=== PATIENT | male | born 1940 | race Caucasian/White ===

== ENCOUNTER 2017-12-12 12:44 | Day surgery (SDC) | payer MEDICARE ==
[~2017-12-12 12:44] MED LIST: Buffered Lidocaine 0.9% SYRIN* 5 ML/SYR SYRINGE INTRADERM ONE; Famotidine IV* 10 MG/ML 2 ML (20 mg) IV ONE; Metoclopramide TAB* 10 MG PO ONE
[2017-12-12] MEDS ORDERED: Famotidine IV* 10 MG/ML 2 ML (20 mg) ONE (12:49)
[2017-12-12] MEDS ORDERED: Metoclopramide TAB* 10 MG ONE (12:50)
[2017-12-12] MEDS ORDERED: ceFAZolin 1 GM in Dextrose (*) 2 GM/100 ML BAG IVPB ONE (12:50)
[2017-12-12] MEDS ORDERED: Dexamethasone IV* 4 MG/ML 1 ML (4 MG) ONE (13:50)
[2017-12-12] MEDS ORDERED: Lidocaine 2% PF * 5 ML VIAL ONE (13:50)
[2017-12-12] MEDS ORDERED: Ondansetron INJ* 2 MG/ML VIAL ONE (13:50)
[2017-12-12] MEDS ORDERED: fentaNYL* 50 MCG/ML 2 ML VIAL (100 MCG VIAL) ONE (13:50)
[2017-12-12] MEDS ORDERED: Propofol* 10 MG/ML 20 ML BTL IV PUSH ONE (13:50)
[2017-12-12] MEDS ORDERED: KETAMINE HCL* 50 MG/ML 10 ML VIAL ONE (13:51)
[2017-12-12] MEDS ORDERED: Midazolam* 1 MG/ML 10 ML VIAL (10 MG) ONE (13:51)
[2017-12-12] MEDS ORDERED: Lidocaine 1% MPF wEPI 200,000* 30 ML SDV ONE (14:09)
[2017-12-12] MEDS ORDERED: Mineral Oil Sterile, TOPICAL* 25 ML BTL ONE (14:09)
[2017-12-12] MEDS ORDERED: Labetalol IV* 5 MG/ML 20 ML VIAL ONE (14:36)
[2017-12-12] MEDS ORDERED: Naloxone* 0.4 MG/ML 1 ML VIAL IV PRN (15:45)
[2017-12-12] MEDS ORDERED: Ondansetron INJ* 2 MG/ML VIAL IV PRN (15:45)
[2017-12-12] MEDS ORDERED: fentaNYL* 50 MCG/ML 2 ML VIAL (100 MCG VIAL) IV PRN (15:45)
[2017-12-12 16:35] VITALS: BP 119/64
== END 2017-12-12 16:42 | disposition home or self-care (01) ==
LOC: OR 12:44
PROVIDERS: ATTEND Plastic Surgery
DX: D04.22 Carcinoma in situ of skin of left ear and external auricular canal (principal); I48.91 Unspecified atrial fibrillation; Z79.01 Long term (current) use of anticoagulants; I10 Essential (primary) hypertension; E03.9 Hypothyroidism, unspecified; Z95.2 Presence of prosthetic heart valve; Z95.1 Presence of aortocoronary bypass graft; I65.29 Occlusion and stenosis of unspecified carotid artery; I25.10 Atherosclerotic heart disease of native coronary artery without angina pectoris
CPT/HCPCS: 88305; 88331; 88332; A9270-GY; J0690; J1100; J2001; J2250; J2405; J2704; J3010

== ENCOUNTER 2024-06-08 16:25 | Inpatient (IN) ==
[2024-06-08] MEDS: NS 0.9% 500 ml BAG 500 ML IV ONE (16:45)
[2024-06-08 16:58] LABS: Hematocrit 31.6 % (38-53); Hemoglobin 10.8 g/dL (13.2-16.3); Mean Corpuscular Hemoglobin 36.2 pg (27-33); Mean Corpuscular Hgb Conc 34.2 g/dL (31-36); Mean Corpuscular Volume 105.7 fL (80-97); Red Blood Count 2.99 10^6/uL (4.06-5.63); Red Cell Distribution Width 18.5 % (12-17); White Blood Count 5.3 10^3/uL (3.6-10.2)
[2024-06-08 17:03] LABS: INR 3.8 (0.83-1.13)
[2024-06-08 17:23] LABS: ABS Lymphocytes 0.2 10^3/uL (1.0-4.8); ABS Monocytes 0.7 10^3/uL (0.0-1.1); ABS Neutrophils 4.2 10^3/uL (1.5-7.6); Eosinophil % 0.9 %; Lymphocyte % 4.2 %; Mean Platelet Volume 8.1 fL (7.5-11.2); Nucleated Red Blood Cells % 0.1 %/100WBC (0.0-0.8); Platelet Count 95 10^3/uL (150-450)
[2024-06-08 17:36] LABS: Albumin 3.6 g/dL (3.2-5.2); Calcium 9.2 mg/dL (8.6-10.3); Creatinine, Serum 1.71 mg/dL (0.67-1.17); Globulin 3.6 g/dL (2-4); Potassium 3.6 mmol/L (3.5-5.0); Total Bilirubin 3.3 mg/dL (0.2-1.0); Total Protein 7.2 g/dL (6.4-8.9); eGFR CKD-EPI 38.7 (>60)
[2024-06-08 18:09] LABS: Urine Appearance Clear; Urine Bilirubin Negative (Negative); Urine Blood Negative (Negative); Urine Color Light-Yellow; Urine Glucose Trace (Negative); Urine Ketones Negative (Negative); Urine Nitrite Negative (Negative); Urine Protein Negative (Negative); Urine Specific Gravity 1.009 (1.002-1.030); Urine Urobilinogen Negative (Negative); Urine pH 6.5 (5.0-8.0)
[2024-06-08 18:17] LABS: High Sensitivity Troponin 1 Hr 164 pg/mL (<20)
[2024-06-08] MEDS: Iodixanol (CONTRAST) 320 MG/ML 100 ML SDV IV ONE (18:34)
[2024-06-08 20:24] LABS: High Sensitivity Troponin 3 Hr 160 pg/mL (<20)
[2024-06-09 00:57] LABS: TSH Ultra Thyroid Stim Horm 4.5 mcIU/mL (0.34-5.60)
[2024-06-09 01:04] LABS: Ferritin 57.3 ng/mL (24-336)
[2024-06-09 01:08] LABS: Folate 9.1 ng/mL (5.90-24.80)
[2024-06-09] MEDS: NS 0.9% 1000 ml BAG 500 ML IV SCH ×2 (01:33→01:51)
[2024-06-09 02:33] LABS: Immature Retic Fraction 0.26
[2024-06-09 02:49] LABS: Hematocrit for Retic CNT 31.6 % (38-53); RBC Retic Count 2.99 10^6/ul (4.06-5.63)
[2024-06-09 05:27] LABS: C Reactive Protein 3.01 mg/L (<8.01); Magnesium 2.5 mg/dL (1.9-2.7)
[2024-06-09 05:33] LABS: ABS Basophils 0.1 10^3/uL (0.0-0.1); ABS Lymphocytes 0.2 10^3/uL (1.0-4.8); ABS Monocytes 0.7 10^3/uL (0.0-1.1); ABS Neutrophils 4.9 10^3/uL (1.5-7.6); ABS Nucleated RBC 0.01 10^3/ul; Eosinophil % 0.4 %; Hemoglobin 10.8 g/dL (13.2-16.3); INR 3.61 (0.83-1.13); Lymphocyte % 3.8 %; Mean Corpuscular Hemoglobin 36.8 pg (27-33); Mean Corpuscular Volume 105.2 fL (80-97); Mean Platelet Volume 8.4 fL (7.5-11.2); Nucleated Red Blood Cells % 0.1 %/100WBC (0.0-0.8); Platelet Count 83 10^3/uL (150-450); Red Blood Count 2.95 10^6/uL (4.06-5.63); Red Cell Distribution Width 18.3 % (12-17); White Blood Count 5.9 10^3/uL (3.6-10.2)
[2024-06-09 06:05] LABS: Albumin 3.3 g/dL (3.2-5.2); Calcium 9.1 mg/dL (8.6-10.3); Creatinine, Serum 1.54 mg/dL (0.67-1.17); Globulin 3.4 g/dL (2-4); Magnesium 2.3 mg/dL (1.9-2.7); Potassium 3.4 mmol/L (3.5-5.0); Total Bilirubin 3.5 mg/dL (0.2-1.0); Total Protein 6.7 g/dL (6.4-8.9); eGFR CKD-EPI 43.9 (>60)
[2024-06-09] MEDS ORDERED: Sulfur Hexaflouride MICROSPHR 25 MG VIAL ONE (08:34)
[2024-06-09] MEDS: Sulfur Hexaflouride MICROSPHR 25 MG VIAL IV ONE (08:38)
[2024-06-09] MEDS: KCL 20 MEQ/100 ML IVPREMIX 20 MEQ/100 ML BAG IV SCH (09:42)
[2024-06-09] MEDS: Warfarin - No Order Today **NOTE FOLLOW UP ONE (18:05)
[2024-06-09] MEDS: Warfarin per PHARMACY **NOTE FOLLOW UP SCH (18:05)
[2024-06-10 06:42] LABS: INR 3.14 (0.83-1.13)
[2024-06-10 06:47] LABS: ABS Lymphocytes 0.3 10^3/uL (1.0-4.8); ABS Monocytes 0.8 10^3/uL (0.0-1.1); ABS Neutrophils 5.8 10^3/uL (1.5-7.6); ABS Nucleated RBC 0.01 10^3/ul; Eosinophil % 0.3 %; Hematocrit 33.1 % (38-53); Hemoglobin 11.3 g/dL (13.2-16.3); Lymphocyte % 4.3 %; Mean Corpuscular Hemoglobin 36.3 pg (27-33); Mean Corpuscular Hgb Conc 34.1 g/dL (31-36); Mean Corpuscular Volume 106.5 fL (80-97); Mean Platelet Volume 8.7 fL (7.5-11.2); Nucleated Red Blood Cells % 0.1 %/100WBC (0.0-0.8); Platelet Count 90 10^3/uL (150-450); Red Blood Count 3.11 10^6/uL (4.06-5.63); Red Cell Distribution Width 18.7 % (12-17); White Blood Count 6.9 10^3/uL (3.6-10.2)
[2024-06-10 06:55] LABS: Albumin 3.4 g/dL (3.2-5.2); Calcium 9.5 mg/dL (8.6-10.3); Creatinine, Serum 1.77 mg/dL (0.67-1.17); Globulin 3.4 g/dL (2-4); Magnesium 2.6 mg/dL (1.9-2.7); Total Bilirubin 3.4 mg/dL (0.2-1.0); Total Protein 6.8 g/dL (6.4-8.9); eGFR CKD-EPI 37.2 (>60)
[2024-06-10 08:43] LABS: HDL Cholesterol 26.4 mg/dL
[2024-06-10] MEDS ORDERED: fentaNYL 100 mcg/2 ml 50 MCG/ML VIAL ONE (14:17)
[2024-06-10] MEDS ORDERED: Flumazenil 0.5 mg/5 ml 0.1 MG/ML 5 ml VIAL ONE (14:17)
[2024-06-10] MEDS ORDERED: Naloxone 0.4 mg VIAL 0.4 mg/ml 1 ml VIAL ONE (14:17)
[2024-06-10] MEDS ORDERED: Midazolam 5 mg/5 ml VIAL 1 mg/ml 5 ml VIAL (5 mg) ONE (14:18)
[2024-06-10] MEDS: fentaNYL 100 mcg/2 ml 50 MCG/ML VIAL IV SLOW PU ONE (14:39)
[2024-06-10] MEDS: Midazolam 10 mg/10 ml VIAL 1 mg/ml 10 ml VIAL (10 mg) IV SLOW PU ONE (14:39)
[2024-06-10] MEDS: Warfarin DAILY REMINDER **NOTE FOLLOW UP SCH (17:41)
[2024-06-11 06:49] LABS: INR 3.02 (0.83-1.13)
[2024-06-11 07:07] LABS: Calcium 9.5 mg/dL (8.6-10.3); Creatinine, Serum 1.56 mg/dL (0.67-1.17); Magnesium 2.6 mg/dL (1.9-2.7); eGFR CKD-EPI 43.3 (>60)
[2024-06-11 08:20] LABS: ABS Lymphocytes 0.2 10^3/uL (1.0-4.8); ABS Monocytes 0.6 10^3/uL (0.0-1.1); ABS Neutrophils 4.8 10^3/uL (1.5-7.6); ABS Nucleated RBC 0.01 10^3/ul; Eosinophil % 0.8 %; Hematocrit 32.5 % (38-53); Hemoglobin 11.1 g/dL (13.2-16.3); Lymphocyte % 4.2 %; Mean Corpuscular Hemoglobin 36.2 pg (27-33); Mean Corpuscular Hgb Conc 34.2 g/dL (31-36); Mean Corpuscular Volume 105.9 fL (80-97); Mean Platelet Volume 8.1 fL (7.5-11.2); Nucleated Red Blood Cells % 0.2 %/100WBC (0.0-0.8); Platelet Count 89 10^3/uL (150-450); Red Blood Count 3.07 10^6/uL (4.06-5.63); Red Cell Distribution Width 18.4 % (12-17); White Blood Count 5.7 10^3/uL (3.6-10.2)
[2024-06-11 14:13] LABS: Haptoglobin 27 mg/dL (30 - 200)
[2024-06-11] MEDS ORDERED: Senna TAB 8.6 mg TAB PO PRN (20:51)
[2024-06-12 06:25] LABS: INR 3.48 (0.83-1.13)
[2024-06-12] MEDS ORDERED: Senna TAB 8.6 mg TAB PO PRN (09:01)
[2024-06-12] MEDS ORDERED: Polyethylene Glycol 3350 17 GM PACKET PO PRN (09:02)
[2024-06-12] MEDS: Polyethylene Glycol 3350 17 GM PACKET PO SCH (11:05)
[2024-06-12] MEDS: Senna TAB 8.6 mg TAB PO ONE (11:05)
[2024-06-12 13:50] VITALS: BP 147/81
[2024-06-12 14:57] LABS: Anaplasma phagocytophilum Negative (Negative); B. miyamotoi PCR, B Negative (Negative); Babesia divergens/MO-1 Negative (Negative); Babesia ducani Negative (Negative); Ehrlichia chaffeensis Negative (Negative); Ehrlichia ewingii/canis Negative (Negative); Ehrlichia muris eauclairensis Negative (Negative)
[2024-06-12] MEDS ORDERED: Warfarin - No Order Today **NOTE FOLLOW UP ONE (17:00)
== END 2024-06-12 14:30 | disposition home health service (06) | DRG 948 ==
LOC: ED 16:25 → EDHOLD 16:25 → SUATTDRO 21:47 → MEDTELE 06-09 00:08
PROVIDERS: ADMIT Internal Medicine; ATTEND Student in an Organized Health Care Education/Training Program

== ENCOUNTER 2024-06-22 14:27 | Inpatient (IN) ==
[2024-06-22] MEDS: LACTATED RINGERS IV ONE (15:02)
[2024-06-22 15:20] LABS: Hematocrit 19.2 % (38-53); Hemoglobin 6.5 g/dL (13.2-16.3); Mean Corpuscular Hemoglobin 36.5 pg (27-33); Mean Corpuscular Hgb Conc 33.9 g/dL (31-36); Mean Corpuscular Volume 107.7 fL (80-97); Red Blood Count 1.79 10^6/uL (4.06-5.63); Red Cell Distribution Width 18.9 % (12-17); White Blood Count 7.2 10^3/uL (3.6-10.2)
[2024-06-22 15:32] LABS: Activated Partial Thrombo Time 45.2 seconds (26.0-38.0)
[2024-06-22 15:32] LABS: Urine Appearance Clear; Urine Bilirubin Negative (Negative); Urine Blood Negative (Negative); Urine Color Light-Yellow; Urine Glucose 1+ (>=70 mg/dL) (Negative); Urine Ketones Negative (Negative); Urine Nitrite Negative (Negative); Urine Protein Negative (Negative); Urine Specific Gravity 1.015 (1.002-1.030); Urine Urobilinogen Negative (Negative)
[2024-06-22 15:37] LABS: INR 9.55 (0.85-1.14)
[2024-06-22 15:39] LABS: Urine Bacteria 1+ /HPF (Absent); Urine Red Blood Cell Trace(0-2/hpf) /HPF (0-Trace); Urine Squamous Epithelial Cell Present /HPF (Absent); Urine White Blood Cell Trace(0-5/hpf) /HPF (0-Trace)
[2024-06-22 15:49] LABS: ABS Lymphocytes 0.3 10^3/uL (1.0-4.8); ABS Monocytes 0.5 10^3/uL (0.0-1.1); ABS Neutrophils 6.4 10^3/uL (1.5-7.6); ABS Nucleated RBC 0.04 10^3/ul; Anisocytosis 2+; Eosinophil % 0.2 %; Lymphocyte % 3.9 %; Macrocytosis 1+; Mean Platelet Volume 8.4 fL (7.5-11.2); Nucleated Red Blood Cells % 0.6 %/100WBC (0.0-0.8); Platelet Count 92 10^3/uL (150-450); Polychromasia 1+
[2024-06-22] MEDS: Phytonadione IV (Adult) 10 MG in NS 0.9% 50 ML 50 ML IV ONE (16:16)
[2024-06-22] MEDS: Prothrombin Complex Conc. DOSE = Units Factor IX (nine) IV SLOW PU ONE (16:27)
[2024-06-22 16:33] LABS: Albumin 3.1 g/dL (3.2-5.2); Albumin/Globulin Ratio 1.1 (1-3); C Reactive Protein 2.66 mg/L (<8.01); Calcium 9.1 mg/dL (8.6-10.3); Creatinine, Serum 1.44 mg/dL (0.67-1.17); Globulin 2.8 g/dL (2-4); Potassium 4.1 mmol/L (3.5-5.0); Total Bilirubin 2.5 mg/dL (0.2-1.0); Total Protein 5.9 g/dL (6.4-8.9); eGFR CKD-EPI 47.6 (>60)
[2024-06-22 16:42] LABS: High Sensitivity Troponin 1 Hr 113 pg/mL (<20)
[2024-06-22] MEDS: Pantoprazole VIAL 40 MG VIAL IV ONE (17:36)
[2024-06-22] MEDS: Pantoprazole 80 mg in NS BAG 80 MG/250 ML BAG IV SCH (18:14)
[2024-06-23 00:30] LABS: Hematocrit 21.4 % (38-53); Hemoglobin 7.1 g/dL (13.2-16.3)
[2024-06-23] MEDS: Levothyroxine 100 MCG/5 ML VIAL IV SCH (06:35)
[2024-06-23] MEDS: Lactated Ringers 1000 ml BAG 1,000 ML IV ONE ×2 (08:00→13:37)
[2024-06-23 08:17] LABS: INR 2.16 (0.85-1.14)
[2024-06-23 08:25] LABS: Hematocrit 22.7 % (38-53); Hemoglobin 7.6 g/dL (13.2-16.3); Mean Corpuscular Hemoglobin 33.8 pg (27-33); Mean Corpuscular Hgb Conc 33.4 g/dL (31-36); Mean Corpuscular Volume 101.4 fL (80-97); Red Blood Count 2.24 10^6/uL (4.06-5.63); Red Cell Distribution Width 23.5 % (12-17); White Blood Count 7.4 10^3/uL (3.6-10.2)
[2024-06-23 08:34] LABS: Anion Gap 11 mmol/L (2-16); Blood Urea Nitrogen 104 mg/dL (6-24); CO2 Carbon Dioxide 17 mmol/L (22-32); Calcium 8.6 mg/dL (8.6-10.3); Chloride 109 mmol/L (101-111); Creatinine, Serum 1.45 mg/dL (0.67-1.17); Glucose 100 mg/dL (70-100); Sodium 137 mmol/L (135-145); eGFR CKD-EPI 47.2 (>60)
[2024-06-23 09:35] LABS: ABS Eosinophils 0.1 10^3/uL (0.0-0.5); ABS Lymphocytes 0.3 10^3/uL (1.0-4.8); ABS Monocytes 0.6 10^3/uL (0.0-1.1); ABS Neutrophils 6.3 10^3/uL (1.5-7.6); ABS Nucleated RBC 0.07 10^3/ul; Eosinophil % 0.8 %; Lymphocyte % 4.7 %; Mean Platelet Volume 8.8 fL (7.5-11.2); Nucleated Red Blood Cells % 0.9 %/100WBC (0.0-0.8); Platelet Count 86 10^3/uL (150-450)
[2024-06-23 11:22] LABS: Folate 7.23 ng/mL (5.90-24.80)
[2024-06-23 13:51] LABS: Ferritin 42.5 ng/mL (24-336)
[2024-06-23 13:54] LABS: Hepatitis B Surface Antigen Nonreactive (Nonreactive)
[2024-06-23 14:11] LABS: Hepatitis B Surface Ab Not Immune (Immune)
[2024-06-23 14:18] LABS: Hepatitis C Antibody Negative (Negative)
[2024-06-23 15:17] LABS: Hematocrit 22.2 % (38-53); Hemoglobin 7.4 g/dL (13.2-16.3); Mean Corpuscular Hemoglobin 33.9 pg (27-33); Mean Corpuscular Hgb Conc 33.5 g/dL (31-36); Mean Platelet Volume 8.6 fL (7.5-11.2); Platelet Count 85 10^3/uL (150-450); Red Cell Distribution Width 23.1 % (12-17); White Blood Count 7.1 10^3/uL (3.6-10.2)
[2024-06-23 15:55] LABS: ABS Basophils 0.1 10^3/uL (0.0-0.1); ABS Lymphocytes 0.3 10^3/uL (1.0-4.8); ABS Monocytes 0.5 10^3/uL (0.0-1.1); ABS Neutrophils 6.2 10^3/uL (1.5-7.6); ABS Nucleated RBC 0.09 10^3/ul; Anisocytosis 2+; Eosinophil % 0.5 %; Lymphocyte % 4.1 %; Nucleated Red Blood Cells % 1.3 %/100WBC (0.0-0.8); Polychromasia 2+
[2024-06-24 05:02] LABS: ABS Basophils 0.1 10^3/uL (0.0-0.1); ABS Eosinophils 0.1 10^3/uL (0.0-0.5); ABS Lymphocytes 0.2 10^3/uL (1.0-4.8); ABS Monocytes 0.6 10^3/uL (0.0-1.1); ABS Neutrophils 6.3 10^3/uL (1.5-7.6); ABS Nucleated RBC 0.07 10^3/ul; Eosinophil % 1.1 %; Hematocrit 22.6 % (38-53); Hemoglobin 7.9 g/dL (13.2-16.3); Lymphocyte % 3.3 %; Mean Corpuscular Hemoglobin 35.3 pg (27-33); Mean Corpuscular Hgb Conc 34.9 g/dL (31-36); Mean Corpuscular Volume 101.1 fL (80-97); Mean Platelet Volume 8.8 fL (7.5-11.2); Platelet Count 87 10^3/uL (150-450); Red Blood Count 2.24 10^6/uL (4.06-5.63); Red Cell Distribution Width 23.5 % (12-17); White Blood Count 7.4 10^3/uL (3.6-10.2)
[2024-06-24 06:55] LABS: Anion Gap 11 mmol/L (2-16); Blood Urea Nitrogen 79 mg/dL (6-24); CO2 Carbon Dioxide 18 mmol/L (22-32); Calcium 8.4 mg/dL (8.6-10.3); Chloride 109 mmol/L (101-111); Creatinine, Serum 1.36 mg/dL (0.67-1.17); Glucose 90 mg/dL (70-100); Sodium 138 mmol/L (135-145)
[2024-06-24 10:15] LABS: INR 1.66 (0.85-1.14)
[2024-06-24 11:49] LABS: Magnesium 2.1 mg/dL (1.9-2.7)
[2024-06-24] MEDS ORDERED: Midazolam 10 mg/10 ml VIAL 1 mg/ml 10 ml VIAL (10 mg) ONE (16:53)
[2024-06-24] MEDS ORDERED: fentaNYL 100 mcg/2 ml 50 MCG/ML VIAL ONE (16:53)
[2024-06-24] MEDS: Pantoprazole VIAL 40 MG VIAL IV SCH (20:20)
[2024-06-24] MEDS: Enoxaparin 40 MG/0.4 ML SYR SUBCUT ONE (20:20)
[2024-06-25 05:01] LABS: Calcium 8.6 mg/dL (8.6-10.3); Creatinine, Serum 1.22 mg/dL (0.67-1.17); Potassium 3.9 mmol/L (3.5-5.0); eGFR CKD-EPI 58.1 (>60)
[2024-06-25 05:10] LABS: ABS Basophils 0.1 10^3/uL (0.0-0.1); ABS Eosinophils 0.2 10^3/uL (0.0-0.5); ABS Lymphocytes 0.4 10^3/uL (1.0-4.8); ABS Monocytes 0.7 10^3/uL (0.0-1.1); ABS Neutrophils 5.5 10^3/uL (1.5-7.6); ABS Nucleated RBC 0.04 10^3/ul; Eosinophil % 2.5 %; Hematocrit 24.3 % (38-53); Hemoglobin 8.1 g/dL (13.2-16.3); Lymphocyte % 5.3 %; Mean Corpuscular Hemoglobin 34.6 pg (27-33); Mean Corpuscular Hgb Conc 33.5 g/dL (31-36); Mean Corpuscular Volume 103.5 fL (80-97); Mean Platelet Volume 8.5 fL (7.5-11.2); Nucleated Red Blood Cells % 0.5 %/100WBC (0.0-0.8); Platelet Count 75 10^3/uL (150-450); Red Blood Count 2.35 10^6/uL (4.06-5.63); Red Cell Distribution Width 23.8 % (12-17); White Blood Count 6.8 10^3/uL (3.6-10.2)
[2024-06-25] MEDS ORDERED: Warfarin per PHARMACY **NOTE FOLLOW UP SCH (10:00)
[2024-06-25 10:04] LABS: INR 1.78 (0.85-1.14)
[2024-06-25 10:56] LABS: Albumin 2.9 g/dL (3.2-5.2); Direct Bilirubin 1.9 mg/dL (0.03-0.18); Globulin 2.9 g/dL (2-4); Indirect Bilirubin 1.9 mg/dL (0.3-1.0); Total Bilirubin 3.8 mg/dL (0.2-1.0); Total Protein 5.8 g/dL (6.4-8.9)
[2024-06-25] MEDS: Warfarin DAILY REMINDER **NOTE FOLLOW UP SCH (15:48)
[2024-06-25] MEDS: Enoxaparin 80 MG/0.8 ML SYR SUBCUT ONE (17:17)
[2024-06-25] MEDS: Senna TAB 8.6 mg TAB PO PRN (22:41)
[2024-06-26 05:56] LABS: INR 2.37 (0.85-1.14)
[2024-06-26 06:03] LABS: ABS Eosinophils 0.1 10^3/uL (0.0-0.5); ABS Lymphocytes 0.3 10^3/uL (1.0-4.8); ABS Monocytes 0.8 10^3/uL (0.0-1.1); ABS Neutrophils 7.9 10^3/uL (1.5-7.6); ABS Nucleated RBC 0.07 10^3/ul; Hematocrit 22.4 % (38-53); Hemoglobin 7.7 g/dL (13.2-16.3); Lymphocyte % 3.6 %; Mean Corpuscular Hemoglobin 35.2 pg (27-33); Mean Corpuscular Hgb Conc 34.4 g/dL (31-36); Mean Corpuscular Volume 102.3 fL (80-97); Mean Platelet Volume 7.9 fL (7.5-11.2); Nucleated Red Blood Cells % 0.7 %/100WBC (0.0-0.8); Platelet Count 71 10^3/uL (150-450); Red Blood Count 2.19 10^6/uL (4.06-5.63); Red Cell Distribution Width 23.9 % (12-17); White Blood Count 9.2 10^3/uL (3.6-10.2)
[2024-06-26] MEDS: Enoxaparin 80 MG/0.8 ML SYR SUBCUT SCH ×2 (06:35→19:24)
[2024-06-26 07:01] LABS: Albumin 2.7 g/dL (3.2-5.2); Calcium 8.2 mg/dL (8.6-10.3); Creatinine, Serum 1.26 mg/dL (0.67-1.17); Direct Bilirubin 1.7 mg/dL (0.03-0.18); Globulin 2.7 g/dL (2-4); Indirect Bilirubin 1.8 mg/dL (0.3-1.0); Magnesium 1.8 mg/dL (1.9-2.7); Potassium 3.9 mmol/L (3.5-5.0); Total Bilirubin 3.5 mg/dL (0.2-1.0); Total Protein 5.4 g/dL (6.4-8.9); eGFR CKD-EPI 55.9 (>60)
[2024-06-26] MEDS: Polyethylene Glycol 3350 17 GM PACKET PO PRN (11:27)
[2024-06-26] MEDS ORDERED: Warfarin per PHARMACY **NOTE FOLLOW UP SCH ×2 (11:46→16:00)
[2024-06-26] MEDS: Senna TAB 8.6 mg TAB PO SCH (14:04)
[2024-06-26 19:32] LABS: ABS Eosinophils 0.1 10^3/uL (0.0-0.5); ABS Lymphocytes 0.3 10^3/uL (1.0-4.8); ABS Monocytes 0.8 10^3/uL (0.0-1.1); ABS Neutrophils 7.9 10^3/uL (1.5-7.6); ABS Nucleated RBC 0.13 10^3/ul; Eosinophil % 0.9 %; Hematocrit 24.9 % (38-53); Hemoglobin 8.1 g/dL (13.2-16.3); Lymphocyte % 3.1 %; Mean Corpuscular Hemoglobin 33.9 pg (27-33); Mean Corpuscular Hgb Conc 32.5 g/dL (31-36); Mean Corpuscular Volume 104.4 fL (80-97); Mean Platelet Volume 8.4 fL (7.5-11.2); Nucleated Red Blood Cells % 1.4 %/100WBC (0.0-0.8); Platelet Count 79 10^3/uL (150-450); Red Blood Count 2.39 10^6/uL (4.06-5.63); Red Cell Distribution Width 25.5 % (12-17); White Blood Count 9.1 10^3/uL (3.6-10.2)
[2024-06-27] MEDS: Metoprolol Tartrate 5 mg VIAL 5 ml VIAL (1 mg/ml) IV PRN ×2 (02:23→03:07)
[2024-06-27] MEDS: Metoprolol Tartrate 5 mg VIAL 5 ml VIAL (1 mg/ml) ONE (02:53)
[2024-06-27] MEDS: Magnesium Sulfate 2 gm BAG 2 GM/50 ML BAG IVPB ONE ×2 (03:05→12:27)
[2024-06-27] MEDS: Magnesium Sulfate 2 gm BAG 2 GM/50 ML BAG ONE (04:06)
[2024-06-27 05:49] LABS: High Sensitivity Troponin 1 Hr 276 pg/mL (<20)
[2024-06-27] MEDS: Acetaminophen IV 1 GM/100ML 1,000 MG/100 ML BAG IV ONE (06:12)
[2024-06-27] MEDS ORDERED: Acetaminophen IV 1 GM/100ML 1,000 MG/100 ML BAG IV PRN (06:14)
[2024-06-27 06:38] LABS: INR 3.01 (0.85-1.14)
[2024-06-27 08:15] LABS: Hematocrit 24.9 % (38-53); Hemoglobin 8.4 g/dL (13.2-16.3); Mean Corpuscular Hgb Conc 33.6 g/dL (31-36); Mean Corpuscular Volume 104.2 fL (80-97); Red Blood Count 2.39 10^6/uL (4.06-5.63); Red Cell Distribution Width 24.4 % (12-17); White Blood Count 12.3 10^3/uL (3.6-10.2)
[2024-06-27 08:41] LABS: ABS Eosinophils 0.1 10^3/uL (0.0-0.5); ABS Lymphocytes 0.1 10^3/uL (1.0-4.8); ABS Monocytes 0.4 10^3/uL (0.0-1.1); ABS Neutrophils 11.6 10^3/uL (1.5-7.6); ABS Nucleated RBC 0.22 10^3/ul; Eosinophil % 0.8 %; Lymphocyte % 1.1 %; Mean Platelet Volume 8.8 fL (7.5-11.2); Nucleated Red Blood Cells % 1.8 %/100WBC (0.0-0.8); Platelet Count 89 10^3/uL (150-450)
[2024-06-27] MEDS ORDERED: Vancomycin per Pharmacy 1 EA NOTE FOLLOW UP PRN (10:52)
[2024-06-27] MEDS ORDERED: Zosyn per Pharmacy NOTE FOLLOW UP SCH (11:00)
[2024-06-27] MEDS: Lactated Ringers 1000 ml BAG 1,000 ML IV ONE (11:42)
[2024-06-27] MEDS: Piperacillin/Tazobac 3.375 BAG 3.375 GM/100 ML BAG IV ONE (11:42)
[2024-06-27 12:02] LABS: Albumin 2.9 g/dL (3.2-5.2); Albumin/Globulin Ratio 1.1 (1-3); Calcium 8.6 mg/dL (8.6-10.3); Creatinine, Serum 1.72 mg/dL (0.67-1.17); Globulin 2.6 g/dL (2-4); Potassium 4.5 mmol/L (3.5-5.0); Total Bilirubin 3.8 mg/dL (0.2-1.0); Total Protein 5.5 g/dL (6.4-8.9); eGFR CKD-EPI 38.5 (>60)
[2024-06-27 12:33] LABS: Hematocrit 23.4 % (38-53); Hemoglobin 7.8 g/dL (13.2-16.3); Mean Corpuscular Hemoglobin 34.6 pg (27-33); Mean Corpuscular Hgb Conc 33.3 g/dL (31-36); Mean Corpuscular Volume 103.9 fL (80-97); Red Blood Count 2.25 10^6/uL (4.06-5.63); Red Cell Distribution Width 23.8 % (12-17); White Blood Count 15.4 10^3/uL (3.6-10.2)
[2024-06-27] MEDS: Vancomycin 1,250 MG in NS 0.9% 250 ml 250 ML IVPB ONE (12:50)
[2024-06-27 12:53] LABS: ABS Lymphocytes 0.1 10^3/uL (1.0-4.8); ABS Monocytes 0.8 10^3/uL (0.0-1.1); ABS Neutrophils 14.4 10^3/uL (1.5-7.6); ABS Nucleated RBC 0.11 10^3/ul; Anisocytosis 2+; Eosinophil % 0.1 %; Lymphocyte % 0.9 %; Macrocytosis 1+; Mean Platelet Volume 8.7 fL (7.5-11.2); Nucleated Red Blood Cells % 0.7 %/100WBC (0.0-0.8); Platelet Count 74 10^3/uL (150-450); Polychromasia 1+
[2024-06-27] MEDS: Warfarin DAILY REMINDER **NOTE FOLLOW UP SCH (15:07)
[2024-06-27] MEDS: ZOSYN 3.375 GM Q8H per EXTENDED INFUSION IV SCH (16:37)
[2024-06-28] MEDS ORDERED: Sulfur Hexaflouride MICROSPHR 25 MG VIAL IV PRN ×2 (01:40→14:16)
[2024-06-28] MEDS: ceFAZolin 1 GM in Dextrose 1 GM/50 ML BAG IVPB SCH (02:14)
[2024-06-28] MEDS: Albumin Human 5% 25 GM/500 ML BTL IV ONE (02:14)
[2024-06-28 06:31] LABS: Urine Appearance Extra Turbid; Urine Color Yellow; Urine Specific Gravity 1.021 (1.002-1.030); Urine Urobilinogen Negative (Negative); Urine pH 5.5 (5.0-8.0)
[2024-06-28 06:32] LABS: Urine Bacteria 3+ /HPF (Absent); Urine Bilirubin Negative (Negative); Urine Blood 2+ (Negative); Urine Glucose Negative (Negative); Urine Ketones Negative (Negative); Urine Nitrite Negative (Negative); Urine Protein Trace (Negative); Urine Squamous Epithelial Cell Present /HPF (Absent); Urine White Blood Cell 3+(>20/hpf) /HPF (0-Trace)
[2024-06-28 06:33] LABS: Urine Transitional Epithelial Present /HPF (Absent)
[2024-06-28 06:45] LABS: Urine Red Blood Cell 3+(>10/hpf) /HPF (0-Trace)
[2024-06-28 07:24] LABS: ABS Lymphocytes 0.1 10^3/uL (1.0-4.8); ABS Monocytes 0.4 10^3/uL (0.0-1.1); ABS Neutrophils 10.1 10^3/uL (1.5-7.6); ABS Nucleated RBC 0.06 10^3/ul; Hematocrit 23.1 % (38-53); Hemoglobin 7.7 g/dL (13.2-16.3); Lymphocyte % 0.6 %; Mean Corpuscular Hemoglobin 34.8 pg (27-33); Mean Corpuscular Hgb Conc 33.3 g/dL (31-36); Mean Corpuscular Volume 104.2 fL (80-97); Mean Platelet Volume 8.4 fL (7.5-11.2); Nucleated Red Blood Cells % 0.5 %/100WBC (0.0-0.8); Platelet Count 76 10^3/uL (150-450); Red Blood Count 2.22 10^6/uL (4.06-5.63); Red Cell Distribution Width 24.3 % (12-17); White Blood Count 10.6 10^3/uL (3.6-10.2)
[2024-06-28 07:25] LABS: INR 4.47 (0.85-1.14)
[2024-06-28 08:09] LABS: Calcium 8.3 mg/dL (8.6-10.3); Creatinine, Serum 1.95 mg/dL (0.67-1.17); Potassium 4.8 mmol/L (3.5-5.0); eGFR CKD-EPI 33.1 (>60)
[2024-06-28] MEDS: Lactated Ringers 1000 ml BAG 1,000 ML IV SCH (09:44)
[2024-06-28] MEDS ORDERED: Vancomycin 750 MG in NS 0.9% 250 ML IVPB SCH (12:00)
[2024-06-28 18:32] LABS: Urine Appearance Turbid; Urine Bilirubin Negative (Negative); Urine Blood 1+ (Negative); Urine Color Yellow; Urine Glucose Negative (Negative); Urine Ketones Negative (Negative); Urine Nitrite Negative (Negative); Urine Protein Trace (Negative); Urine Specific Gravity 1.018 (1.002-1.030); Urine Urobilinogen Negative (Negative); Urine pH 5.5 (5.0-8.0)
[2024-06-28 18:44] LABS: Hematocrit 25.9 % (38-53); Hemoglobin 8.9 g/dL (13.2-16.3); Mean Corpuscular Hemoglobin 34.4 pg (27-33); Mean Corpuscular Hgb Conc 34.2 g/dL (31-36); Mean Corpuscular Volume 100.5 fL (80-97); Mean Platelet Volume 8.4 fL (7.5-11.2); Platelet Count 81 10^3/uL (150-450); Red Blood Count 2.58 10^6/uL (4.06-5.63); Red Cell Distribution Width 23.7 % (12-17); White Blood Count 9.5 10^3/uL (3.6-10.2)
[2024-06-28 18:53] LABS: Urine Bacteria 3+ /HPF (Absent); Urine Red Blood Cell 2+(6-10/hpf) /HPF (0-Trace); Urine Squamous Epithelial Cell Present /HPF (Absent); Urine Transitional Epithelial Present /HPF (Absent); Urine White Blood Cell 3+(>20/hpf) /HPF (0-Trace)
[2024-06-28] MEDS: Phytonadione Oral Solution 5 MG/25 ML UDC PO ONE (19:19)
[2024-06-28] MEDS: Warfarin - No Order Today **NOTE FOLLOW UP ONE (19:31)
[2024-06-29 01:41] LABS: ABS Lymphocytes 0.2 10^3/uL (1.0-4.8); ABS Monocytes 0.7 10^3/uL (0.0-1.1); ABS Neutrophils 7.7 10^3/uL (1.5-7.6); ABS Nucleated RBC 0.06 10^3/ul; Eosinophil % 0.2 %; Hemoglobin 8.3 g/dL (13.2-16.3); Lymphocyte % 1.8 %; Mean Corpuscular Hemoglobin 33.3 pg (27-33); Mean Corpuscular Hgb Conc 33.3 g/dL (31-36); Mean Corpuscular Volume 99.9 fL (80-97); Mean Platelet Volume 8.5 fL (7.5-11.2); Nucleated Red Blood Cells % 0.7 %/100WBC (0.0-0.8); Platelet Count 82 10^3/uL (150-450); Red Cell Distribution Width 23.7 % (12-17); White Blood Count 8.6 10^3/uL (3.6-10.2)
[2024-06-29 01:42] LABS: Anisocytosis 2+; Polychromasia 2+
[2024-06-29 05:06] LABS: INR 3.18 (0.85-1.14)
[2024-06-29 05:24] LABS: ABS Lymphocytes 0.2 10^3/uL (1.0-4.8); ABS Monocytes 0.5 10^3/uL (0.0-1.1); ABS Neutrophils 7.4 10^3/uL (1.5-7.6); ABS Nucleated RBC 0.04 10^3/ul; Eosinophil % 0.6 %; Hematocrit 24.9 % (38-53); Hemoglobin 8.6 g/dL (13.2-16.3); Lymphocyte % 2.1 %; Mean Corpuscular Hemoglobin 34.2 pg (27-33); Mean Corpuscular Hgb Conc 34.4 g/dL (31-36); Mean Corpuscular Volume 99.5 fL (80-97); Mean Platelet Volume 8.3 fL (7.5-11.2); Nucleated Red Blood Cells % 0.5 %/100WBC (0.0-0.8); Platelet Count 81 10^3/uL (150-450); Red Cell Distribution Width 23.1 % (12-17); White Blood Count 8.1 10^3/uL (3.6-10.2)
[2024-06-29 06:00] LABS: Albumin/Globulin Ratio 1.1 (1-3); C Reactive Protein 75.24 mg/L (<8.01); Calcium 8.2 mg/dL (8.6-10.3); Creatinine, Serum 2.1 mg/dL (0.67-1.17); Globulin 2.8 g/dL (2-4); Potassium 4.5 mmol/L (3.5-5.0); Total Bilirubin 4.1 mg/dL (0.2-1.0); Total Protein 5.8 g/dL (6.4-8.9); eGFR CKD-EPI 30.3 (>60)
[2024-06-29 15:52] LABS: Urine Creatinine Concentration 79.42 mg/dL (20.00-370.00); Urine Sodium Concentration < 18 mmol/L
[2024-06-29 15:53] LABS: Urine Osmo 495 mOsm/kg (150-1150)
[2024-06-29] MEDS: Furosemide 20 mg/2 ml IV VIAL IV ONE (16:34)
[2024-06-29 17:50] LABS: Hematocrit 24.8 % (38-53); Hemoglobin 8.3 g/dL (13.2-16.3)
[2024-06-30 06:42] LABS: INR 2.29 (0.85-1.14)
[2024-06-30 06:48] LABS: Hematocrit 25.4 % (38-53); Hemoglobin 8.6 g/dL (13.2-16.3); Mean Corpuscular Hemoglobin 33.5 pg (27-33); Mean Corpuscular Hgb Conc 33.8 g/dL (31-36); Mean Corpuscular Volume 99.3 fL (80-97); Mean Platelet Volume 8.7 fL (7.5-11.2); Platelet Count 76 10^3/uL (150-450); Red Blood Count 2.56 10^6/uL (4.06-5.63); Red Cell Distribution Width 23.1 % (12-17)
[2024-06-30 07:05] LABS: Albumin 2.8 g/dL (3.2-5.2); Albumin/Globulin Ratio 0.9 (1-3); Globulin 3.2 g/dL (2-4); Magnesium 2.5 mg/dL (1.9-2.7)
[2024-06-30 07:26] LABS: ABS Eosinophils 0.1 10^3/uL (0.0-0.5); ABS Lymphocytes 0.3 10^3/uL (1.0-4.8); ABS Monocytes 0.9 10^3/uL (0.0-1.1); ABS Neutrophils 5.7 10^3/uL (1.5-7.6); ABS Nucleated RBC 0.04 10^3/ul; Eosinophil % 1.7 %; Nucleated Red Blood Cells % 0.6 %/100WBC (0.0-0.8)
[2024-06-30 07:27] LABS: Anisocytosis 2+; Polychromasia 1+
[2024-06-30 07:34] LABS: Calcium 8.3 mg/dL (8.6-10.3); Creatinine, Serum 1.86 mg/dL (0.67-1.17); Potassium 4.3 mmol/L (3.5-5.0)
[2024-06-30] MEDS: Furosemide 20 mg/2 ml IV VIAL IV ONE (14:08)
[2024-06-30 18:15] LABS: Hematocrit 25.2 % (38-53); Hemoglobin 8.5 g/dL (13.2-16.3)
[2024-07-01 05:52] LABS: Hematocrit 25.2 % (38-53); Hemoglobin 8.4 g/dL (13.2-16.3); Mean Corpuscular Hemoglobin 32.7 pg (27-33); Mean Corpuscular Hgb Conc 33.3 g/dL (31-36); Mean Corpuscular Volume 98.2 fL (80-97); Red Blood Count 2.57 10^6/uL (4.06-5.63); Red Cell Distribution Width 23.1 % (12-17); White Blood Count 6.2 10^3/uL (3.6-10.2)
[2024-07-01 05:54] LABS: INR 2.27 (0.85-1.14)
[2024-07-01 05:56] LABS: ABS Eosinophils 0.2 10^3/uL (0.0-0.5); ABS Lymphocytes 0.4 10^3/uL (1.0-4.8); ABS Monocytes 0.9 10^3/uL (0.0-1.1); ABS Neutrophils 4.7 10^3/uL (1.5-7.6); ABS Nucleated RBC 0.02 10^3/ul; Eosinophil % 2.6 %; Lymphocyte % 6.3 %; Mean Platelet Volume 8.7 fL (7.5-11.2); Nucleated Red Blood Cells % 0.4 %/100WBC (0.0-0.8); Platelet Count 71 10^3/uL (150-450)
[2024-07-01 06:09] LABS: Albumin 2.9 g/dL (3.2-5.2); Calcium 8.3 mg/dL (8.6-10.3); Creatinine, Serum 1.74 mg/dL (0.67-1.17); Globulin 2.8 g/dL (2-4); Potassium 4.3 mmol/L (3.5-5.0); Total Bilirubin 3.6 mg/dL (0.2-1.0); Total Protein 5.7 g/dL (6.4-8.9); eGFR CKD-EPI 37.9 (>60)
[2024-07-02 06:37] LABS: ABS Eosinophils 0.2 10^3/uL (0.0-0.5); ABS Lymphocytes 0.4 10^3/uL (1.0-4.8); ABS Monocytes 0.9 10^3/uL (0.0-1.1); ABS Neutrophils 4.5 10^3/uL (1.5-7.6); ABS Nucleated RBC 0.02 10^3/ul; Eosinophil % 3.9 %; Hematocrit 25.3 % (38-53); Hemoglobin 8.6 g/dL (13.2-16.3); INR 2.17 (0.85-1.14); Lymphocyte % 7.2 %; Mean Corpuscular Hemoglobin 33.3 pg (27-33); Mean Corpuscular Hgb Conc 33.9 g/dL (31-36); Mean Corpuscular Volume 98.2 fL (80-97); Mean Platelet Volume 8.7 fL (7.5-11.2); Nucleated Red Blood Cells % 0.3 %/100WBC (0.0-0.8); Platelet Count 71 10^3/uL (150-450); Red Blood Count 2.58 10^6/uL (4.06-5.63); Red Cell Distribution Width 23.2 % (12-17)
[2024-07-02 06:43] LABS: Albumin 2.8 g/dL (3.2-5.2); Albumin/Globulin Ratio 0.9 (1-3); Calcium 8.3 mg/dL (8.6-10.3); Creatinine, Serum 1.53 mg/dL (0.67-1.17); Potassium 4.1 mmol/L (3.5-5.0); Total Bilirubin 3.6 mg/dL (0.2-1.0); Total Protein 5.8 g/dL (6.4-8.9); eGFR CKD-EPI 44.3 (>60)
[2024-07-02] MEDS ORDERED: ceFAZolin VIAL 2 GM in NS 0.9% 100 ml BAG 100 ML IVPB SCH (11:00)
[2024-07-02] MEDS: ceFAZolin 2 GM PREMIX 2 GM/50 ML BAG IVPB SCH (11:20)
[2024-07-02] MEDS ORDERED: Midazolam 5 mg/5 ml VIAL 1 mg/ml 5 ml VIAL (5 mg) ONE (15:32)
[2024-07-02] MEDS ORDERED: fentaNYL 100 mcg/2 ml 50 MCG/ML VIAL ONE (15:32)
[2024-07-02] MEDS ORDERED: Naloxone 0.4 mg VIAL 0.4 mg/ml 1 ml VIAL ONE (15:32)
[2024-07-02] MEDS ORDERED: Flumazenil 0.5 mg/5 ml 0.1 MG/ML 5 ml VIAL ONE (15:32)
[2024-07-02] MEDS ORDERED: Sulfur Hexaflouride MICROSPHR 25 MG VIAL IV PRN (16:20)
[2024-07-02] MEDS: NS 0.9% 1000 ml BAG 1,000 ML IV ONE (17:13)
[2024-07-03 07:54] LABS: Albumin 2.7 g/dL (3.2-5.2); Albumin/Globulin Ratio 0.9 (1-3); Calcium 8.2 mg/dL (8.6-10.3); Creatinine, Serum 1.38 mg/dL (0.67-1.17); Globulin 2.9 g/dL (2-4); Potassium 4.1 mmol/L (3.5-5.0); Total Bilirubin 3.6 mg/dL (0.2-1.0); Total Protein 5.6 g/dL (6.4-8.9); eGFR CKD-EPI 50.1 (>60)
[2024-07-03 08:00] LABS: ABS Eosinophils 0.2 10^3/uL (0.0-0.5); ABS Lymphocytes 0.4 10^3/uL (1.0-4.8); ABS Monocytes 0.6 10^3/uL (0.0-1.1); ABS Neutrophils 4.9 10^3/uL (1.5-7.6); ABS Nucleated RBC 0.02 10^3/ul; Eosinophil % 3.8 %; Hematocrit 26.4 % (38-53); Hemoglobin 8.8 g/dL (13.2-16.3); Lymphocyte % 5.8 %; Mean Corpuscular Hemoglobin 33.2 pg (27-33); Mean Corpuscular Hgb Conc 33.5 g/dL (31-36); Mean Corpuscular Volume 98.9 fL (80-97); Mean Platelet Volume 8.2 fL (7.5-11.2); Nucleated Red Blood Cells % 0.3 %/100WBC (0.0-0.8); Platelet Count 73 10^3/uL (150-450); Red Blood Count 2.67 10^6/uL (4.06-5.63); Red Cell Distribution Width 23.3 % (12-17); White Blood Count 6.2 10^3/uL (3.6-10.2)
[2024-07-03] MEDS: guaiFENesin 100 mg/5 ml LIQ unit dose cup PO PRN (12:17)
[2024-07-03 17:07] LABS: INR 2.05 (0.85-1.14)
[2024-07-03] MEDS: Hemorrhoidal OINT 1 TUBE PR PRN (18:42)
[2024-07-04 06:25] LABS: INR 2.19 (0.85-1.14)
[2024-07-04 06:33] LABS: ABS Eosinophils 0.2 10^3/uL (0.0-0.5); ABS Lymphocytes 0.4 10^3/uL (1.0-4.8); ABS Monocytes 0.5 10^3/uL (0.0-1.1); ABS Neutrophils 4.1 10^3/uL (1.5-7.6); ABS Nucleated RBC 0.01 10^3/ul; Eosinophil % 3.6 %; Hematocrit 25.7 % (38-53); Hemoglobin 8.5 g/dL (13.2-16.3); Lymphocyte % 7.2 %; Mean Corpuscular Hemoglobin 32.6 pg (27-33); Mean Corpuscular Volume 98.8 fL (80-97); Nucleated Red Blood Cells % 0.3 %/100WBC (0.0-0.8); Platelet Count 80 10^3/uL (150-450); Red Cell Distribution Width 23.1 % (12-17); White Blood Count 5.3 10^3/uL (3.6-10.2)
[2024-07-04 06:59] LABS: Albumin 2.7 g/dL (3.2-5.2); Albumin/Globulin Ratio 0.9 (1-3); Calcium 8.3 mg/dL (8.6-10.3); Creatinine, Serum 1.32 mg/dL (0.67-1.17); Globulin 3.1 g/dL (2-4); Potassium 4.5 mmol/L (3.5-5.0); Total Bilirubin 3.6 mg/dL (0.2-1.0); Total Protein 5.8 g/dL (6.4-8.9); eGFR CKD-EPI 52.9 (>60)
[2024-07-04 13:53] VITALS: BP 116/62
== END 2024-07-04 14:19 | DRG 377 ==
LOC: EDHOLD 14:27 → ED 14:27 → SUATTDRO 16:49 → OBSVTOIN 17:13 → EDHOLD 20:15 → ICU 20:38 → MED 06-25 17:17
PROVIDERS: ADMIT Internal Medicine; ATTEND Student in an Organized Health Care Education/Training Program

== ENCOUNTER 2024-07-15 12:31 | Observation (INO) ==
[2024-07-15 13:55] LABS: ABS Eosinophils 0.2 10^3/uL (0.0-0.5); ABS Lymphocytes 0.2 10^3/uL (1.0-4.8); ABS Monocytes 0.5 10^3/uL (0.0-1.1); ABS Nucleated RBC 0.03 10^3/ul; Hematocrit 24.4 % (38-53); Hemoglobin 8.1 g/dL (13.2-16.3); Lymphocyte % 6.2 %; Mean Corpuscular Hemoglobin 32.3 pg (27-33); Mean Corpuscular Hgb Conc 33.2 g/dL (31-36); Mean Corpuscular Volume 97.4 fL (80-97); Mean Platelet Volume 8.3 fL (7.5-11.2); Nucleated Red Blood Cells % 0.8 %/100WBC (0.0-0.8); Platelet Count 65 10^3/uL (150-450); Red Blood Count 2.51 10^6/uL (4.06-5.63); Red Cell Distribution Width 22.3 % (12-17)
[2024-07-15 14:11] LABS: High Sens Troponin Baseline 71 pg/mL (<20)
[2024-07-15 14:36] LABS: INR 10.46 (0.85-1.14)
[2024-07-15 14:37] LABS: Albumin 2.6 g/dL (3.2-5.2); Albumin/Globulin Ratio 0.8 (1-3); Alkaline Phosphatase 201 U/L (35-149); Anion Gap 7 mmol/L (2-16); Blood Urea Nitrogen 70 mg/dL (6-24); CO2 Carbon Dioxide 15 mmol/L (22-32); Calcium 7.9 mg/dL (8.6-10.3); Chloride 107 mmol/L (101-111); Creatinine, Serum 3.55 mg/dL (0.67-1.17); Globulin 3.1 g/dL (2-4); Glucose 120 mg/dL (70-100); Sodium 129 mmol/L (135-145); Total Bilirubin 2.3 mg/dL (0.2-1.0); Total Protein 5.7 g/dL (6.4-8.9); eGFR CKD-EPI 16.1 (>60)
[2024-07-15 14:50] LABS: ALT < 3 U/L (7-52)
[2024-07-15 15:16] LABS: High Sensitivity Troponin 1 Hr 72 pg/mL (<20)
[2024-07-15] MEDS: Phytonadione IV (Adult) 5 MG in NS 0.9% 50 ML 50 ML IV ONE (16:22)
[2024-07-15] MEDS ORDERED: Senna TAB 8.6 mg TAB PO PRN (17:37)
[2024-07-15] MEDS ORDERED: Ondansetron 4 mg VIAL 2 MG/ML 2 ml VIAL IV PRN (17:40)
[2024-07-15] MEDS ORDERED: LORazepam 2 mg VIAL 1 ml IV PUSH PRN (17:40)
[2024-07-15] MEDS: Furosemide 20 mg/2 ml IV VIAL IV SLOW PU ONE (17:51)
[2024-07-15] MEDS: NS 0.9% 1000 ml BAG 0 ML IV SCH (19:29)
[2024-07-15] MEDS: Sodium Chloride FLUSH 10 ml SYRINGE IV SCH (20:04)
[2024-07-15] MEDS: NS 0.9% 1000 ml BAG 1,000 ML IV SCH (20:04)
[2024-07-15] MEDS ORDERED: CEFAZOLIN 2 GM IM SCH (21:00)
[2024-07-15] MEDS ORDERED: ceFAZolin 2 GM PREMIX 2 GM/50 ML BAG IV SCH (21:00)
[2024-07-16] MEDS ORDERED: ERTUGLIFLOZIN PO SCH (09:00)
[2024-07-17 09:17] VITALS: BP 87/61
[2024-07-17] MEDS: Morphine ORAL CONCENTRATE 5 MG/0.25 ML ORAL.SYRIN SL PRN (09:38)
[2024-07-17] MEDS ORDERED: Ondansetron ODT 4 mg TAB 4 MG TAB SL PRN (10:42)
== END 2024-07-17 13:05 ==
LOC: EDHOLD 12:31 → ED 12:31 → SUATTDRO 17:37 → EDHOLD 07-16 01:08 → MED 07-16 02:39
PROVIDERS: ADMIT Internal Medicine; ATTEND Student in an Organized Health Care Education/Training Program